=== PATIENT | male | born 1985 | race Two or more races ===

== ENCOUNTER 2022-10-30 13:52 | Emergency (ER) | payer MEDICAID ==
[~2022-10-30] VITALS: Ht 175.3 cm; Wt 78.5 kg
--- NOTE | 2022-10-30 14:00 | NUR ---
BIBRA C/O GEN WEAKNESS RUQ PAIN BG 313 DAILY DRINKER 12 PACK A DAY HASNT DRANK PAST THREE DAYS. PLACED IN BED AAOX4, BREATHING EVEN AND UNLABORED SATURATING AT 97%RA.
[2022-10-30] MEDS ORDERED: ONDANSETRON HCL/PF 4 MG/2 ML VIAL ONE ×2 (14:46→15:11)
[2022-10-30] MEDS ORDERED: CHLORDIAZEPOXIDE HCL 25 MG CAPSULE ONE ×2 (14:56)
[2022-10-30] MEDS ORDERED: Thiamine 100 MG in IV D5W 50 ML IV SCH (15:00)
[2022-10-30] MEDS ORDERED: CHLORDIAZEPOXIDE HCL 25 MG CAPSULE PO ONE (15:00)
[2022-10-30] MEDS ORDERED: ONDANSETRON HCL/PF 4 MG/2 ML VIAL IVP ONE ×2 (15:00)
[2022-10-30] MEDS ORDERED: IV NS 0.9% 1,000 ML BAG IV ONE ×2 (15:00)
--- NOTE | 2022-10-30 15:00 | NUR ---
EKG DONE AT BEDSIDE
[2022-10-30 15:21] LABS: BASOPHILS % (AUTO) 0.5 % (0.0-2.0); EOSINOPHILS % (AUTO) 1.9 % (0.0-6.0); HEMATOCRIT 40 % (39-51); HEMOGLOBIN 13.1 g/dL (13.5-17.5); LYMPHOCYTES # (AUTO) 2.2 K/uL (0.8-4.8); LYMPHOCYTES % (AUTO) 42.8 % (20.0-44.0); MEAN CORPUSCULAR HGB CONC 33 g/dl (31.0-36.0); MEAN CORPUSCULAR VOLUME 92 fL (80-96); MONOCYTES # (AUTO) 0.5 K/uL (0.1-1.30); MONOCYTES % (AUTO) 10.5 % (2.0-12.0); NEUTROPHILS # (AUTO) 2.2 K/uL (1.8-8.9); NEUTROPHILS % (AUTO) 44.3 % (43.0-81.0); PLATELET COUNT (AUTO) 211 K/uL (150-450)
--- NOTE | 2022-10-30 15:22 | NUR ---
Addendum: End time documentation: Thiamine 100 mg in D5W (50 cc) start time 1522 pm end time: 1552 pm PIV # 20 LH, port # 1
--- NOTE | 2022-10-30 15:26 | NUR ---
PT TAKEN TO RADIOLOGY FOR CT
[2022-10-30 15:27] LABS: CALCIUM, SERUM 8.6 mg/dL (8.5-10.1); CREATININE 0.6 mg/dL (0.6-1.3); LIPASE 65 U/L (73-393); POTASSIUM 3.4 mmol/L (3.5-5.1)
[2022-10-30 15:29] LABS: SERUM AMMONIA 21 umol/L (11-32)
[2022-10-30 15:33] LABS: ALBUMIN 2.9 g/dL (3.4-5.0); BILIRUBIN,DIRECT 0.5 mg/dL (0.0-0.2); BILIRUBIN,TOTAL 0.8 mg/dL (0.2-1.0)
[2022-10-30] MEDS ORDERED: POTASSIUM CHLORIDE 20 MEQ TAB.PRT.SR PO ONE ×2 (16:00→16:07)
--- NOTE | 2022-10-30 16:23 | NUR ---
URINE SAMPLE SENT TO LAB
[2022-10-30] MEDS ORDERED: CHLO25CA22 PO ×3 (17:21→17:47)
[2022-10-30 17:33] LABS: BILIRUBIN,URINE NEGATIVE (NEGATIVE); COLOR,URINE YELLOW (YELLOW); LEUKOCYTE ESTERASE ,URINE NEGATIVE (NEGATIVE); NITRITE, URINE NEGATIVE (NEGATIVE); PROTEIN,URINE NEGATIVE (NEGATIVE); UGLUCOSE 3+ mg/dL (NEGATIVE)
[2022-10-30] MEDS ORDERED: METF-440 PO ×2 (17:42→17:47)
[2022-10-30 17:49] LABS: BACTERIA,URINE None seen /HPF (None Seen); RBC,URINE 0-2 /HPF (0-2); SQUAMOUS EPITHELIAL CELL,UR 0-2 /HPF (None Seen); WBC,URINE 0-2 /HPF (0-3)
[2022-10-30] MEDS ORDERED: ACETAMINOPHEN ES 500 MG TABLET ONE (17:58)
[2022-10-30] MEDS ORDERED: ACETAMINOPHEN ES 500 MG TABLET PO ONE (18:00)
--- NOTE | 2022-10-30 18:24 | NUR ---
IV removed. Catheter intact and site benign. Pressure and 4x4 applied to site. No bleeding noted.Patient discharged to home in stable condition. Written and verbal after care instructions given. Patient verbalizes understanding of instruction.
[2022-10-30 18:26] VITALS: BP 114/74
== END 2022-10-30 18:25 | disposition home or self-care (01) ==
LOC: ER 13:56
DX: F10.139 Alcohol abuse with withdrawal, unspecified (principal); E11.65 Type 2 diabetes mellitus with hyperglycemia; K76.0 Fatty (change of) liver, not elsewhere classified; Z79.84 Long term (current) use of oral hypoglycemic drugs; Z79.899 Other long term (current) drug therapy; Y90.3 Blood alcohol level of 60-79 mg/100 ml
CPT/HCPCS: 99285; 96365; 96361; 96375; 93005; 71045; 74176; 82140; 85025; 80048; 83690; 80076; 81001; 36415; 82962; 80320; 80307; J2405 ×2; J7060; J7030; J3411; G0480